=== PATIENT | female | born 1990 | race Two or more races ===

== ENCOUNTER 2017-11-09 11:00 | Observation (INO) | payer BC ==
[~2017-11-09] VITALS: Ht 160 cm; Wt 99.8 kg
[2017-11-09] MEDS ORDERED: TERBUTALINE SULFATE 1 MG/ML 1ML VIAL SC SCH (13:00)
[2017-11-09] MEDS ORDERED: TERBUTALINE SULFATE 1 MG/ML 1ML VIAL SC ONE (13:02)
== END 2017-11-09 13:45 | disposition home or self-care (01) | DRG 781 ==
LOC: LDRP 11:00
PROVIDERS: ADMIT Obstetrics & Gynecology; ATTEND Obstetrics & Gynecology
DX: O24.419 Gestational diabetes mellitus in pregnancy, unspecified control (principal); Z3A.35 35 weeks gestation of pregnancy
CPT/HCPCS: 59025; 76818; 81002; 82948; 82962; 96372; G0378; J3105

== ENCOUNTER 2017-11-12 14:03 | Observation (INO) | payer BC ==
[2017-11-12] MEDS ORDERED: BETAMETHASONE ACET (6MG/ML) 5ML VIAL ONE (16:03)
== END 2017-11-12 16:00 | disposition home or self-care (01) | DRG 781 ==
LOC: LDRP 14:03
PROVIDERS: ADMIT Specialist; ATTEND Specialist
DX: O24.419 Gestational diabetes mellitus in pregnancy, unspecified control (principal); Z3A.36 36 weeks gestation of pregnancy
CPT/HCPCS: 59025; 76818; 81002; 82962; G0378; J0702

== ENCOUNTER → 2017-11-16 14:05 | Observation (INO) | payer BC ==
[~2017-11-16 14:05] MED LIST: PREN-96 PO
== END | disposition home or self-care (01) | DRG 781 ==
LOC: LDRP 14:05
PROVIDERS: ADMIT Obstetrics & Gynecology; ATTEND Obstetrics & Gynecology
DX: O24.419 Gestational diabetes mellitus in pregnancy, unspecified control (principal); Z3A.37 37 weeks gestation of pregnancy
CPT/HCPCS: 59025; 76818; 81002; 82962; G0378

== ENCOUNTER 2017-11-19 13:57 | Observation (INO) | payer BC ==
[2017-11-19] MEDS ORDERED: PREN-96 PO (16:59)
== END 2017-11-19 15:25 | disposition home or self-care (01) | DRG 781 ==
LOC: LDRP 13:57
PROVIDERS: ADMIT Specialist; ATTEND Specialist
DX: O24.419 Gestational diabetes mellitus in pregnancy, unspecified control (principal); Z3A.00 Weeks of gestation of pregnancy not specified
CPT/HCPCS: 59025; 76818; 81002; 82948; 82962; G0378

== ENCOUNTER 2017-11-23 08:10 | Observation (INO) | payer BC | END 2017-11-23 09:10 | disposition home or self-care (01) | DRG 781 | LOC: LDRP 08:10 | PROVIDERS: ADMIT Obstetrics & Gynecology; ATTEND Obstetrics & Gynecology | DX: O24.419 Gestational diabetes mellitus in pregnancy, unspecified control (principal); Z3A.00 Weeks of gestation of pregnancy not specified | CPT/HCPCS: 59025; 76818; 81002; 82948; 82962; G0378 ==

== ENCOUNTER 2017-11-26 11:22 | Observation (INO) | payer BC | END 2017-11-26 15:00 | disposition home or self-care (01) | DRG 781 | LOC: LDRP 11:22 | PROVIDERS: ADMIT Specialist; ATTEND Specialist | DX: O24.419 Gestational diabetes mellitus in pregnancy, unspecified control (principal); Z3A.38 38 weeks gestation of pregnancy | CPT/HCPCS: 59025; 76818; 81002; 82948; 82962; G0378 ==

== ENCOUNTER 2017-11-29 10:00 | Observation (INO) | payer BC | END 2017-11-29 12:00 | disposition home or self-care (01) | DRG 781 | LOC: LDRP 10:00 | PROVIDERS: ADMIT Specialist; ATTEND Specialist | DX: O24.419 Gestational diabetes mellitus in pregnancy, unspecified control (principal); Z3A.38 38 weeks gestation of pregnancy | CPT/HCPCS: 59025; 76818; 81002; 82948; 82962; G0378 ==

== ENCOUNTER 2017-12-02 10:05 | Observation (INO) | payer BC | END 2017-12-02 12:20 | disposition home or self-care (01) | DRG 775 | LOC: LDRP 10:05 → UNDODISOB 12:20 | PROVIDERS: ADMIT Specialist; ATTEND Specialist | DX: O24.420 Gestational diabetes mellitus in childbirth, diet controlled (principal); O36.63X0 Maternal care for excessive fetal growth, third trimester, not applicable or unspecified; O32.2XX0 Maternal care for transverse and oblique lie, not applicable or unspecified; Z3A.38 38 weeks gestation of pregnancy | CPT/HCPCS: 59025; 76818; 81002; 82962; G0378 ==

== ENCOUNTER 2017-12-04 04:10 | Inpatient (IN) | payer BC ==
[2017-12-04] VITALS (17 sets, daily range): BP systolic 105–130; BP diastolic 56–79
[~2017-12-04] VITALS: Ht 160 cm; Wt 104.3 kg
[2017-12-04] MEDS: LACTATED RINGER'S 1,000 ML IV SCH ×3 (05:00→23:50)
[2017-12-04 05:39] LABS: Basophils # (auto) 0.1 uL; Basophils % (auto) 0.5 % (0.0-2.0); Eosinophils # (auto) 0.1 uL; Eosinophils % (auto) 0.8 % (0.0-7.0); Hematocrit 35.6 % (36.0-46.0); Hemoglobin 11.5 g/dL (12.2-16.2); Lymphocytes # (auto) 2.1 uL; Lymphocytes % (auto) 21.5 % (10.0-50.0); Mean Corpuscular Hemoglobin 27.1 pg (28.0-32.0); Mean Corpuscular Hgb Conc. 32.2 g/dL (32.0-36.0); Mean Corpuscular Volume 84.1 fL (80.0-100.0); Monocytes # (auto) 0.6 uL; Monocytes % (auto) 6.1 % (0.0-12.0); Neutrophils # (auto) 7.1 uL; Neutrophils % (auto) 71.1 % (37.0-80.0); Platelet Count (auto) 345 10^3/uL (140-450); Red Blood Cells 4.24 10^6/uL (4.0-5.20); Red Cell Distribution Width 14.5 % (11.8-14.3)
[2017-12-04 06:01] LABS: Albumin 2.7 g/dL (3.4-5.0); BUN/Creatinine Ratio 18.3; Calcium 8.4 mg/dL (8.5-10.1); Potassium 3.6 mmol/L (3.5-5.1)
[2017-12-04 06:03] LABS: Bilirubin, Total 0.2 mg/dL (0.2-1.0); Total Protein 7.4 g/dL (6.4-8.2)
[2017-12-04 06:20] LABS: INR 0.88 (0.9-1.15); Partial Thromboplastin Time 28.7 sec (23.78-33.04); Prothrombin Time 9.5 sec (9.27-12.13)
[2017-12-04 06:35] LABS: Urine WBC None Seen /hpf (0 - 5)
[2017-12-04 06:51] LABS: Urine Bacteria NONE SEEN /hpf (None Seen); Urine Blood Negative /uL (Negative)
[2017-12-04] MEDS ORDERED: LACTATED RINGER'S 1,000 ML IV ONE (07:00)
[2017-12-04] MEDS ORDERED: TETRACAINE 1% INJ 2 ML VIAL IJ ONE (07:47)
[2017-12-04] MEDS ORDERED: OXYTOCIN 10UNIT/ML 1ML VIAL ONE (07:49)
[2017-12-04] MEDS ORDERED: SODIUM CHLORIDE LOCK 10 ML ONE (07:49)
[2017-12-04] MEDS ORDERED: fentaNYL CITRATE 100 MCG/2 ML VL ONE (07:49)
[2017-12-04] MEDS ORDERED: MIDAZOLAM HCL 1MG/1ML-2 ML VIAL ONE (07:49)
[2017-12-04] MEDS ORDERED: ePHEDrine SULFATE 50 MG/ML AMP ONE (07:49)
[2017-12-04] MEDS ORDERED: ceFAZolin 1GM VL ONE (07:49)
[2017-12-04] MEDS ORDERED: MORPHINE SULF(PF) 0.5MG/ML 10ML VIAL ONE (07:49)
[2017-12-04] MEDS: LACT. RINGERS/OXYTOCIN 20UNITS 1,000 ML IV SCH ×2 (09:39→16:19)
[2017-12-04] MEDS ORDERED: ONDANSETRON HCL 4 MG/2 ML VIAL IV PRN (09:45)
[2017-12-04] MEDS ORDERED: MORPHINE SULFATE 8mg/ml INJ SDV IV PRN ×2 (09:45→10:15)
[2017-12-04] MEDS ORDERED: ceFAZolin 1GM/50ML 50 ML IV SCH (09:45)
[2017-12-04] MEDS ORDERED: NALOXONE HCL 0.4 MG/ML VIAL IV PRN (10:15)
[2017-12-04] MEDS ORDERED: KETOROLAC TROMETH 30 MG/ML 1ML VIAL IV ONE (10:15)
[2017-12-04] MEDS ORDERED: ACCU-CHEK COMFORT CURVE STRIP VI ONE (10:15)
[2017-12-04] MEDS ORDERED: METOCLOPRAMIDE HCL 5MG/ml INJ 2ml VIAL IV ONE (10:15)
[2017-12-04] MEDS ORDERED: diphenhdrAMINE HCL 50 MG/1 ML VL IV PRN (10:15)
[2017-12-04] MEDS: ceFAZolin 1GM/50ML 50 ML IV SCH ×2 (16:05→23:50)
[2017-12-04] MEDS: KETOROLAC TROMETH 30 MG/ML 1ML VIAL IV PRN (16:05)
[2017-12-04 20:16] LABS: Basophils # (auto) 0 uL; Basophils % (auto) 0.2 % (0.0-2.0); Eosinophils # (auto) 0 uL; Eosinophils % (auto) 0.2 % (0.0-7.0); Hematocrit 30.2 % (36.0-46.0); Hemoglobin 9.8 g/dL (12.2-16.2); Lymphocytes # (auto) 1.7 uL; Lymphocytes % (auto) 12.1 % (10.0-50.0); Mean Corpuscular Hemoglobin 27.3 pg (28.0-32.0); Mean Corpuscular Hgb Conc. 32.6 g/dL (32.0-36.0); Mean Corpuscular Volume 83.6 fL (80.0-100.0); Monocytes # (auto) 0.8 uL; Monocytes % (auto) 6.1 % (0.0-12.0); Neutrophils # (auto) 11.4 uL; Neutrophils % (auto) 81.4 % (37.0-80.0); Platelet Count (auto) 295 10^3/uL (140-450); Red Blood Cells 3.61 10^6/uL (4.0-5.20); Red Cell Distribution Width 14.4 % (11.8-14.3)
[2017-12-05] VITALS (7 sets, daily range): BP systolic 109–125; BP diastolic 63–78
[2017-12-05] MEDS: KETOROLAC TROMETH 30 MG/ML 1ML VIAL IV PRN (05:46)
[2017-12-05 06:06] LABS: RPR Non Reactive (Non Reactive)
[2017-12-05 07:27] LABS: Basophils # (auto) 0.1 uL; Basophils % (auto) 0.4 % (0.0-2.0); Eosinophils # (auto) 0.1 uL; Eosinophils % (auto) 0.4 % (0.0-7.0); Hematocrit 30.5 % (36.0-46.0); Hemoglobin 9.8 g/dL (12.2-16.2); Lymphocytes # (auto) 1.5 uL; Lymphocytes % (auto) 9.6 % (10.0-50.0); Mean Corpuscular Hemoglobin 27.5 pg (28.0-32.0); Mean Corpuscular Hgb Conc. 32.2 g/dL (32.0-36.0); Mean Corpuscular Volume 85.5 fL (80.0-100.0); Monocytes # (auto) 0.7 uL; Monocytes % (auto) 4.3 % (0.0-12.0); Neutrophils % (auto) 85.3 % (37.0-80.0); Nucleated Red Blood Cells % 0.1 %; Platelet Count (auto) 277 10^3/uL (140-450); Red Blood Cells 3.56 10^6/uL (4.0-5.20); Red Cell Distribution Width 14.5 % (11.8-14.3); White Blood Cell 15.2 10^3/uL (4.4-10.8)
[2017-12-05] MEDS: ceFAZolin 1GM/50ML 50 ML IV SCH (08:00)
[2017-12-05] MEDS ORDERED: HYDROcodone-ACET 5/325MG TAB PO PRN (09:30)
[2017-12-05] MEDS ORDERED: BISACODYL 10 MG RECT SUPP PR PRN (09:30)
[2017-12-05] MEDS: DOCUSATE CALCIUM 240 MG CAP PO SCH (10:00)
[2017-12-05] MEDS: FERROUS SULFATE 325 MG TAB PO SCH ×2 (10:00→22:00)
[2017-12-05] MEDS: DOCUSATE SOD 100 MG CAP PO SCH ×2 (10:00→22:00)
[2017-12-05] MEDS: HYDROcodone-ACET 5/325MG TAB PO PRN ×2 (10:10→16:46)
[2017-12-05] MEDS: SIMETHICONE 80 MG CHEWABLE TABLET PO SCH ×3 (12:19→22:00)
[2017-12-05] MEDS: IBUPROFEN 800 MG TAB PO PRN ×2 (14:10→22:10)
[2017-12-05] MEDS ORDERED: TETANUS-DIPTH-ACEL PERTUSSIS 0.5ML SYRG IM ONE (22:45)
[2017-12-06 03:15] VITALS: BP 123/75
[2017-12-06] MEDS: SIMETHICONE 80 MG CHEWABLE TABLET PO SCH ×4 (05:54→21:55)
[2017-12-06 06:58] VITALS: BP 134/94
[2017-12-06] MEDS: IBUPROFEN 800 MG TAB PO PRN ×2 (08:50→17:48)
[2017-12-06] MEDS: DOCUSATE CALCIUM 240 MG CAP PO SCH (10:48)
[2017-12-06] MEDS: DOCUSATE SOD 100 MG CAP PO SCH ×2 (10:48→21:55)
[2017-12-06] MEDS: FERROUS SULFATE 325 MG TAB PO SCH ×2 (10:48→21:55)
[2017-12-06 11:15] VITALS: BP 114/76
[2017-12-06 15:07] VITALS: BP 130/76
[2017-12-06 19:00] VITALS: BP 127/77
[2017-12-06 23:00] VITALS: BP 130/87
[2017-12-07 03:00] VITALS: BP 131/71
[2017-12-07] MEDS: SIMETHICONE 80 MG CHEWABLE TABLET PO SCH (05:34)
[2017-12-07 06:40] VITALS: BP 137/92
== END 2017-12-07 08:55 | disposition home or self-care (01) | DRG 765 ==
LOC: LDRP 04:10
PROVIDERS: ADMIT Obstetrics & Gynecology; ATTEND Obstetrics & Gynecology
PROC: 10D00Z1 Extraction of Products of Conception, Low, Open Approach (ICD-10-PCS; principal; 2017-12-04 08:38)
DX: O32.2XX0 Maternal care for transverse and oblique lie, not applicable or unspecified (principal); O24.02 Pre-existing type 1 diabetes mellitus, in childbirth; E10.9 Type 1 diabetes mellitus without complications; O40.3XX0 Polyhydramnios, third trimester, not applicable or unspecified; Z37.0 Single live birth; O32.1XX0 Maternal care for breech presentation, not applicable or unspecified; O36.63X0 Maternal care for excessive fetal growth, third trimester, not applicable or unspecified; Z3A.39 39 weeks gestation of pregnancy; Z23 Encounter for immunization
CPT/HCPCS: 36415; 51702; 59025; 80053; 81001; 82962; 85025; 85610; 85730; 86592; 86850; 86900; 86901; 90715; 94762; 96365; 96366; 96374; J0690; J1885; J2250